=== PATIENT | male | born 1980 | race Caucasian/White ===

== ENCOUNTER 2016-10-02 10:40 | Emergency (ER) | payer BC, OTHER ==
--- NOTE | ~2016-10-02 | CT2 ---
[facility] A Service of [facility] RADIOLOGY TEXT RESULTS PATIENT: ANDREW SALDAÑA LOCATION: [facility] : 78 UNIT #: [id number] AGE: [address]: Martin Ignacio MD SEX: M ORDER DR: [id number] [facility]. [place], [place] [address] [id number] MR#: [id number] Acc #: [id number] NAME: ANDREW SALDAÑA : 1980 SEX: M STUDY DATE/TIME: 10/02/2016 12:16 UNIT: OLY ROOM: STUDY DESCRIPTION: CT Abd and Pelv W Cont Attending Physician: Martin Ignacio M.D. Ordering Physician: Martin Ignacio M.D. Primary Care Physician: No Primary Care Physician MEDICAL IMAGING REPORT This report is preliminary unless electronic signature is present EXAM CT abdomen and pelvis, with contrast, 10/02/2016 HISTORY Right upper quadrant abdominal pain for 2 weeks. COMPARISON STUDIES None PROCEDURE 5-mm axial images from the lung bases through the lesser trochanters after intravenous contrast administration. Enteric contrast was not administered. Sagittal and coronal reformatted images were obtained. FINDINGS ABDOMEN: A few small layering gallstones are present within the gallbladder without pericholecystic inflammation or biliary dilation. Benign parenchymal calcifications are seen within the left hepatic lobe near the dome. The spleen, pancreas, adrenals, and left kidney are normal. A complex appearing cyst is seen within the right upper renal pole, measuring 2.7 x 1.8 cm. This cystic lesion appears to have internal septations. There are some areas of increased density within it which could potentially represent mural nodules. The appendix is normal. The unopacified bowel appears nonthickened and noninflamed. PELVIS: The urinary bladder, prostate, and rectum are normal. No pelvic adenopathy or free fluid is seen. No acute or suspicious osseous abnormalities are identified. [facility] A Service of [facility] RADIOLOGY TEXT RESULTS PATIENT: ANDREW SALDAÑA LOCATION: [facility] : 78 UNIT #: [id number] AGE: [address]: Martin Ignacio MD SEX: M ORDER DR: IMPRESSION 1. Normal appendix. 2. Cholelithiasis without CT evidence of cholecystitis or biliary dilation. 3. 2.7-cm complex right renal cystic lesion. It appears to have some internal septations and questionable mural nodularity. Consider multiphase CT abdomen (without and with contrast) for further evaluation on a nonemergent basis, to evaluate for internal enhancement characteristics. 4. The appendix is normal. Dictated by... Nory Lopez M.D. THIS IS AN ELECTRONICALLY VERIFIED REPORT Nory Lopez M.D. at 10/04/2016 8:33 AM JED/blanca TD: 10/02/2016 19:10 JOB #: [id number] MEDICAL IMAGING REPORT Page 1 of 1 COPY
[2016-10-02 10:29] LABS: BASOPHIL# 0.2 X10e3 (0-0.3); BASOPHIL% 1.2 % (0-2.5); EOSINOPHIL# 0.5 X10e3 (0-0.7); EOSINOPHIL% 4.3 % (0.0-7.0); HEMATOCRIT 44.2 % (38.0-50.0); HEMOGLOBIN 14.8 gm/dL (13.0-16.0); LYMPHOCYTE# 4.8 X10e3 (1.0-3.5); LYMPHOCYTE% 37.9 % (17.0-45.0); MEAN CELL VOLUME 93.6 FL (83-96); MEAN CORPUSCULAR HEMOGLOBIN 31.3 PG (28-34); MEAN CORPUSCULAR HGB CONC 33.4 g/dL (30-36); MEAN PLATELET VOLUME 8.2 FL (6.5-11.5); MONOCYTE# 0.9 X10e3 (0-1.0); MONOCYTE% 7.4 % (3.0-12.0); NEUTROPHIL# 6.2 X10e3 (1.5-7.1); NEUTROPHIL% 49.2 % (40-75); PLATELET COUNT 348 X10e3 (140-420); RED BLOOD COUNT 4.72 X10e (3.90-5.60); RED CELL DISTRIBUTION WIDTH 12.4 % (11.0-15.5); WHITE BLOOD COUNT 12.6 X10e3 (4.0-10.5)
[2016-10-02 10:31] LABS: DIFF IND NO
[2016-10-02 10:52] LABS: ALBUMIN SERUM 4.1 g/dL (3.5-5.0); ALKALINE PHOSPHATASE 46 U/L (32-92); ALT (SGPT) 33 U/L (10-40); AMYLASE 14 U/L (0-46); AST (SGOT) 27 U/L (10-42); BILIRUBIN, DIRECT 0.2 mg/dL (0.0-0.2); BILIRUBIN,INDIRECT 0.7 mg/dL (0.0-0.9); BILIRUBIN,TOTAL 0.9 mg/dL (0.2-2.0); BLOOD UREA NITROGEN 9 mg/dL (9-23); BUN/CREATININE RATIO 12.85; CALCIUM SERUM 9.1 mg/dL (8.4-10.2); CARBON DIOXIDE 26 mmol/L (22-31); CHLORIDE 104 mmol/L (100-111); CREATININE SERUM 0.7 mg/dL (0.6-1.4); GLOM FILT RATE Estimated ABOVE60 mL/min (>60); GLUCOSE FASTING 120 mg/dL (70-110); LIPASE 14 U/L (22-51); POTASSIUM 3.8 mmol/L (3.5-5.1); PROTEIN TOTAL SERUM 7.2 g/dL (6.0-8.3); SODIUM 138 mmol/L (135-145)
[2016-10-22] MEDS ORDERED: NO MEDICATIONS (14:54)
== END 2016-10-02 14:57 | disposition home or self-care (01) ==
LOC: CED 10:40
PROVIDERS: Emergency Medicine
DX: K80.70 Calculus of gallbladder and bile duct without cholecystitis without obstruction (principal); N28.1 Cyst of kidney, acquired; F17.200 Nicotine dependence, unspecified, uncomplicated
CPT/HCPCS: 36415; 74177; 80048; 80076; 82150; 83690; 85025; 96374; 99284; J1885; Q9967

== ENCOUNTER → 2016-10-22 | Outpatient (CLI) | payer BC ==
[~2016-10-22] MED LIST: NO MEDICATIONS
[2016-10-22 16:22] LABS: HEMATOCRIT 44.9 % (38.0-50.0); HEMOGLOBIN 14.9 gm/dL (13.0-16.0); MEAN CELL VOLUME 92.9 FL (83-96); MEAN CORPUSCULAR HEMOGLOBIN 30.8 PG (28-34); MEAN CORPUSCULAR HGB CONC 33.1 g/dL (30-36); MEAN PLATELET VOLUME 8.4 FL (6.5-11.5); RED BLOOD COUNT 4.84 X10e (3.90-5.60); RED CELL DISTRIBUTION WIDTH 12.9 % (11.0-15.5); WHITE BLOOD COUNT 15.4 X10e3 (4.0-10.5)
[2016-10-22 17:23] LABS: ALBUMIN SERUM 4.2 g/dL (3.5-5.0); BILIRUBIN,TOTAL 0.7 mg/dL (0.2-2.0); CALCIUM SERUM 8.9 mg/dL (8.4-10.2); CREATININE SERUM 0.6 mg/dL (0.6-1.4); GLOM FILT RATE Estimated 129.4 mL/min (>60); POTASSIUM 3.8 mmol/L (3.5-5.1)
== END | disposition home or self-care (01) ==
LOC: CAMB 14:34
PROVIDERS: Specialist
DX: Z01.812 Encounter for preprocedural laboratory examination (principal)
CPT/HCPCS: 36415; 80053; 85027

== ENCOUNTER → 2016-10-30 | Day surgery (SDC) | payer BC, OTHER ==
--- NOTE | ~2016-10-30 | OR ---
Unit #: [id number] #: [id number] Patient: ANDREW SALDAÑA [id number] [address] [place], [place] [address] [id number] MR#: [id number] NAME: ANDREW SALDAÑA ROOM: Date of Procedure: 10/30/2016 Admission Date: 10/30/2016 Surgeon: Martin Gilliam M.D. : 1980 Attending Physician: Martin Gilliam M.D. Primary Care Physician: Primary Care Physician No OPERATIVE REPORT PREOPERATIVE DIAGNOSES Chronic cholecystitis, cholelithiasis. POSTOPERATIVE DIAGNOSES Chronic cholecystitis, cholelithiasis. PROCEDURE PERFORMED Laparoscopic cholecystectomy. ASSISTANT Justin Kaufman M.D. ANESTHESIA General endotracheal anesthesia. ESTIMATED BLOOD LOSS Less than 10 mL. INDICATIONS FOR PROCEDURE A 35-year-old gentleman with postprandial nausea and right upper quadrant pain, underwent ultrasound revealed cholelithiasis with normal biliary ductal system. Preoperative liver chemistries were normal. DESCRIPTION OF PROCEDURE The patient was admitted to [facility], positively identified, transported to operating room and after induction of general endotracheal anesthesia, he received IV antibiotics per SCIP protocol. His abdominal wall hair was clipped, and he was prepped and draped in usual sterile fashion. A 5-mm supraumbilical incision was made. Veress needle was placed. Pneumoperitoneum was created. Then, a 5-mm trocar was placed. Laparoscope was introduced into the peritoneal cavity under direct vision. The epigastric and lateral ports were placed. Gallbladder was grasped and elevated. The infundibulum was identified and retracted laterally. [place] of [place] was dissected out clearly identifying the cystic duct, gallbladder, and cystic duct-common duct junction and the posteriorly placed cystic artery. The cystic duct was swept upwards and there were no stones in the duct. A single clip was placed in the cystic duct centered to gallbladder and then 3 clips were placed distally and the cystic duct sharply divided. Posteriorly, the cystic artery was doubly clipped proximally and distally and divided. I then dissected the gallbladder liver bed using cautery dissection. Once it was freed up from its hepatic attachments, it was brought out through the epigastric port. Unit #: [id number] #: [id number] Patient: ANDREW SALDAÑA There was good hemostasis. The clips were well positioned. We irrigated the operative site and suctioned the irrigant out and irrigant came back clear. The epigastric fascial defect was closed with a neoClose device and the closure was airtight. I then reduced the pneumoperitoneum as I removed the laparoscope and trocars. 0.5% Marcaine with epinephrine was infiltrated into each trocar site. The skin was closed with 4-0 Monocryl subcuticular closure and Dermabond skin adhesive. Sponges and needle counts were correct x3. The patient tolerated the procedure well and was transported to recovery in stable condition. Findings and postoperative instructions were discussed with his . Dictated by... Renea Fallon/alin TD: 10/31/2016 01:49 JOB #: [id number] OPERATIVE REPORT Page 1 of 1 X Martin Gilliam MD X PROCEDURE OPERATIVE NOTE
[2016-10-30 11:58] LABS: HEMATOCRIT 44.2 % (38.0-50.0); HEMOGLOBIN 14.7 gm/dL (13.0-16.0); MEAN CELL VOLUME 93.1 FL (83-96); MEAN CORPUSCULAR HEMOGLOBIN 30.9 PG (28-34); MEAN CORPUSCULAR HGB CONC 33.2 g/dL (30-36); MEAN PLATELET VOLUME 8.2 FL (6.5-11.5); RED BLOOD COUNT 4.74 X10e (3.90-5.60); RED CELL DISTRIBUTION WIDTH 12.8 % (11.0-15.5); WHITE BLOOD COUNT 11.1 X10e3 (4.0-10.5)
== END | disposition home or self-care (01) ==
LOC: CSUR 11:13
PROVIDERS: Specialist
DX: K81.1 Chronic cholecystitis (principal); F17.290 Nicotine dependence, other tobacco product, uncomplicated; Z91.018 Allergy to other foods; Z98.890 Other specified postprocedural states
CPT/HCPCS: 85027; 88304; J0131; J0330; J0690; J1100; J1170; J2250; J2405; J2710; J3010